=== PATIENT | female | born 1995 | race Caucasian/White ===

== ENCOUNTER → 2020-08-27 13:16 | Outpatient (BNVA) | payer SELFPAY | PROVIDERS: Visit Provider Family Medicine | DX: Z20.828 Contact with and (suspected) exposure to other viral communicable diseases (principal) | CPT/HCPCS: 87635 ==

== ENCOUNTER → 2020-09-28 10:00 | Outpatient (BNVA) | payer OTHER, SELFPAY | PROVIDERS: Visit Provider Obstetrics & Gynecology | DX: Z12.4 Encounter for screening for malignant neoplasm of cervix (principal) | CPT/HCPCS: 88175 ==

== ENCOUNTER → 2021-04-19 10:34 | Outpatient (BNVA) | payer OTHER, SELFPAY | PROVIDERS: PCP Nurse Practitioner Family; Visit Provider Nurse Practitioner Family | DX: F33.1 Major depressive disorder, recurrent, moderate (principal); Z83.2 Family history of diseases of the blood and blood-forming organs and certain disorders involving the immune mechanism | CPT/HCPCS: 80053; 81241; 82306; 82607; 83036; 83540; 84439; 84443; 85610 ==

== ENCOUNTER 2021-05-16 08:08 | Outpatient (CLI) | payer OTHER, SELFPAY ==
--- NOTE | 2021-05-17 07:52 | ONC CON_ITS ---
Dr. Spicer New Patient Note Patient: Alida Mtz Unit #: [id number]: 1995 Dicatated By: Gilberto Spicer M.D.Date of Visit: May 16, 2021 Onc MED New Patient/Consult Referring Physician: CLARE ALMEIDA N.P. Chief Complaint: Factor V Leiden mutation. History of Present Illness: This is a 25-year-old woman who was recently confirmed to have heterozygosity for the factor V Leiden mutation. She has been in good general health, and she has no personal history of thromboembolism. However, her father had an episode of major thromboembolism at age 40, and he was found to have the factor V Leiden mutation. Because of that, the patient recently had screening and she also was found to have heterozygosity for the factor V Leiden mutation. Her other laboratory studies at that time included a CBC which was unremarkable with hemoglobin 13.2 g, white blood cell count 9300, and platelet count 345,000. Her baseline pro time was normal at 12.40 seconds. Comprehensive metabolic profile was unremarkable. She did have a low vitamin D level at 18 ng/mL. Her serum iron and B12 levels were normal, and her TSH also was normal. She has had some minor symptoms associated with anxiety and depression, but those have been improving since she started treatment with Lexapro. She has otherwise been asymptomatic. Past Medical History: Ms. Mtz's medical history consists of anxiety and depression. She had COVID-19 virus infection in 2020. Past Surgical History: She has had no prior surgeries. Medications: Escitalopram Oxalate 1 Tablet (of 10 mg) Oral daily Allergies: Dapsone Social History: Ms. Mtz is . 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 She does not use any tobacco products, but she vapes daily. She has just occasional alcohol use. Family History: Both parents are living, father at age 47 and mother at age 50. He has known factor V Leiden mutation and he has had major thromboembolism. Mother has hypothyroidism. The patient has 2 sisters, both in good health. Neither have been tested for the factor V Leiden mutation. Her paternal grandfather had melanoma and he had multiple siblings with colon cancer. Review Of Symptoms: Constitutional - She had some fatigue when she first started Lexapro, but it is getting better. She has normal activity. Her appetite has been down a little, which she thinks is stress-related. She has no fever, night sweats, or hot flashes. ECOG score is 0, Eyes - No change in vision, ENMT - No hearing loss. She has tinnitus. No sinus congestion/drainage. No mouth sores. No sore throat or difficulty swallowing, Hematologic/Lymphatic - No abnormal bruising or bleeding. She has had no thromboembolism, Respiratory - No shortness of breath. No cough. No pleuritic pain or hemoptysis, Cardiovascular - No angina pain. No palpitations, Gastrointestinal - She has had some nausea, thought to be stress related. No heartburn or acid reflux. No diarrhea or constipation. No blood in the stool or black stools, Genitourinary (F) - No dysuria or hematuria. No urinary frequency. No urgency or incontinence. Her menstrual periods are regular, Musculoskeletal - She has sporadic sciatica pain on the right. She has no other joint or bone pain, Integumentary - No skin rash or other skin problems, Neurologic - No headache or dizziness. No numbness or tingling. No other focal neurologic symptoms, Psychiatric - She has anxiety and depression, but adequately managed with Lexapro. She has had some difficulty sleeping due to stress, but that is getting better. Vital Signs: Performed on May 16, 2021 08:35: 0, 0, 34.06 (HIGH), 1.95 sq.m, 64 in, 98 %, 98 /min, 18 /min, 129/89 mm(hg), 98.2 F (LOW), and 198.4 lbs (HIGH). Physical Examination: Constitutional - She appears to be in good general health, Eyes - Sclerae nonicteric. Conjunctivae clear, ENMT - No lesions noted in the oral cavity, Neck - No mass or thyromegaly, Hematologic/Lymphatic - No cervical, clavicular, or axillary adenopathy, Respiratory - Lungs are clear with good air movement bilaterally, Cardiovascular - Heart rhythm is regular. There is no murmur, gallop, or rub noted, Abdomen - Soft and non-tender. Liver and spleen are not enlarged. There is no abdominal mass or ascites noted and there is no inguinal adenopathy, Back/Spine - No spine or CVA tenderness noted, Extremities - No edema. Pedal pulses are palpable bilaterally, Integumentary - No rashes. No suspicious skin lesions noted, Neurologic - No focal neurologic deficits noted. Problem List: 1. Heterozygosity for the factor V Leiden mutation. 2. Anxiety/depression. 3. Vitamin D deficiency. Problems Addressed with this Encounter and Plan: Patient with heterozygosity for the factor V Leiden mutation. It was discovered as result of screening due to her father having had an episode of major thromboembolism at age 40 and having been found to have the factor V Leiden mutation. The patient has no personal history of thromboembolism. She is aware that in the context of her family history she will likely be at increased risk for thromboembolism associated with the factor V Leiden mutation. With her being asymptomatic and having no personal history of thromboembolism, there is no indication for anticoagulation at this time. However, she should have DVT prophylaxis with any surgical procedure, she is advised that she needs to stop vaping, and she is advised that she should avoid oral contraceptives, hormone replacement therapy, or any other form of hormonal treatment, which will be an added risk for thromboembolism. While she is in an indeterminate category with regard to obstetric management, she should be considered for intermediate dose anticoagulation with . Signed By: Gilberto Spicer M.D. <<Signature on File>>
== END 2021-05-16 08:09 | disposition home or self-care (01) ==
LOC: ONCMED 08:15
PROVIDERS: PCP Nurse Practitioner Family; Visit Provider Internal Medicine Medical Oncology
DX: D68.51 Activated protein C resistance (principal); F41.9 Anxiety disorder, unspecified; F32.9 Major depressive disorder, single episode, unspecified; E55.9 Vitamin D deficiency, unspecified; Z79.899 Other long term (current) drug therapy
CPT/HCPCS: 99204

== ENCOUNTER 2024-07-20 12:40 | Inpatient (IN) | payer OTHER, SELFPAY ==
[2024-07-20] VITALS (32 sets, daily range): BP systolic 93–112; BP diastolic 53–75; PULSE 61–90; RESP 15–18; TEMP 36.2–36.7; O2SAT 98–99; BMI 38.0
[2024-07-20] MEDS: lactated ringers 1,000 ML 999 ML IV (12:19)
[2024-07-20] MEDS: metoclopramide 5 mg/mL SDV 2 mL 10 MG IVP (12:24)
[2024-07-20] MEDS: citric acid-sodium citrate 30 mL UDC PO (12:25)
[2024-07-20] MEDS: famotidine 20 mg/2 mL INJ IVP (12:25)
[2024-07-20 12:41] LABS: Basophils % 0.2 %; Eosinophils # 0.1 10^3/uL (0.0-0.8); Eosinophils % 1.1 %; Hematocrit 37.6 % (36-47); Lymphocytes # 1.8 10^3/uL (0.8-4.8); Lymphocytes % 17.5 %; Mean Corpuscular HGB Conc 33.2 g/dL (30-55); Mean Corpuscular Hemoglobin 29.1 pg (27-33); Mean Corpuscular Volume 87.4 fl (85-98); Mean Platelet Volume 10.3 fL (7.4-10.4); Monocytes # 0.9 10^3/uL (0.2-0.9); Monocytes % 8.9 %; Neutrophils # 7.26 10^3/uL (1.8-7.7); Neutrophils % 71.8 %; Nucleated Red Blood Cells % 0 %; Platelet Count 229 10^3/cmm (157-399); Red Cell Distribution Width 13.5 % (12.1-15.1); White Blood Count 10.11 10^3/uL (3.29-11.43)
--- NOTE | 2024-07-20 12:45 | PM.OBGYHP ---
Providers/Chief Complaint Admitting Physician: Mark Thomas MD Chief Complaint: Poss. SROM, Ctx. 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 She is examined and found to be grossly ruptured. Apparently she thought her membranes were ruptured yesterday. She went to [facility] in [place], and according to them and she was not ruptured. She continued to leak throughout the night and eventually decided to come in again because she thought something was not right. Her baby has been moving a little bit less as well. Her contractions have been increasing in frequency and strength.. She has a previous section has been having a repeat section. She also has diet-controlled gestational diabetes that has been very well-controlled. She is heterozygous for factor V Leiden with a father had a DVT. Her baby appears to be borderline large for gestational age. Review of Systems General: Reports: 10 or more systems reviewed and unremarkable except in HPI and below Const: Reports: fatigue; Denies: fever(s) Eyes: Denies: change in vision Card: Denies: chest pain Musc: Reports: back pain [place]/Lymph: Denies: easy bruising Medications/Allergies Home Medications Medication Instructions Recorded Confirmed Last Taken Type docosahexaenoic acid 200 mg 1 mg PO DAILY 06/27/22 07/20/24 Unknown History capsule ( DHA) levothyroxine 25 mcg capsule 25 mcg PO DAILY 06/27/22 07/20/24 Unknown History docusate sodium 100 mg capsule 100 mg PO BID #14 caps 07/22/24 Unknown Rx enoxaparin 40 mg/0.4 mL 40 mg (0.4 mL) SUBCUT Q24H 13 days 07/22/24 Unknown Rx subcutaneous syringe #5.2 mL hydrocodone 5 mg-acetaminophen 325 1 tab PO Q6H PRN Moderate To 07/22/24 Unknown Rx mg tablet Severe Pain #28 tabs Allergies Allergy/AdvReac Type Severity Reaction Status Date / Time wheat Allergy ALGY-Rash Verified 07/21/24 20:50 dapsone AdvReac Mild coats red Verified 07/21/24 20:50 blood cells and cant get oxygen 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: Medical History Depression with anxiety No pertinent past medical history Surgical History Previous section No significant past surgical history Family History Family/Other Colon cancer Father side--Multiple family members Family history of thyroid problem Maternal Aunt x2 Mother Family history of thyroid problem Diabetes Grandmother Family history of thyroid problem Maternal Diabetes Maternal Stroke Paternal Grandfather Family history of thyroid problem Maternal Father Hypertension DVT (deep venous thrombosis) Social History Smoking and tobacco/nicotine status: current some day tobacco/nicotine user e-cigarettes E-Cigarette Details: vaporizer device E-cig/vape details: 1 time every 3 days. Started 03/2020. Alcohol intake: current Alcohol intake frequency: few times a month Substance/Drug Use: never Other Female Reproductive History: Hx Age of Menarche: 13 Duration of menses: 3-5 days Cycle Length: 26 days Menstrual flow: normal/abnormal: heavy History History History 0 Term Miscarriages/Ectopic Living Children Physical Exam Const: COMMON NORMALS: patient oriented x3 and alert HENMT: COMMON NORMALS: moist oral mucous membranes HEAD & SCALP: normal to inspection Chest: COMMONS NORMALS: normal inspection of the chest Resp: COMMON NORMALS: clear to auscultation bilaterally AUSCULTATION: clear to auscultation bilaterally Cardio: COMMON NORMALS: regular rate and regular rhythm RATE: regular rate RHYTHM: regular rhythm GI: INSPECTION: Yes normal to inspection and Yes other (Gravid) Extremity: COMMON NORMALS: normal to inspection GENERAL: Yes edema (Trace) Neuro: COMMON NORMALS: patient oriented x3, moves all extremities and no sensory deficits noted SENSORIUM/ORIENTATION: Yes alert Psych: COMMON NORMALS: mental status grossly normal Skin: COMMON NORMALS: no rashes or lesions noted GENERAL SKIN EXAM: no rashes or lesions noted Data 07/21/24 01:41 Results Labs OB ([facility]): Blood Type O Positive 07/20/24 Antibody Screen Negative 07/20/24 Hct 35.7 % (36-47) L 07/21/24 Hgb 11.70 g/dL (11.27-16.99) 07/21/24 Rho(D) Type Rh positive 07/20/24 Plt Count 208 10^3/cmm (157-399) 07/21/24 A&P Assessment and plan (1) 37 weeks gestation of : We will proceed with a repeat section. We have previously discussed the risks of bleeding, infection, and damage intra-abdominal organs. She and her have no further questions and wished to proceed. (2) Heterozygous factor V Leiden affecting in third trimester, antepartum: We discussed the pros and cons of anticoagulation post section. They understand that there is a balance between risks and blood clots. Because her father did have a blood clot her risk for a blood clot may be around 3% depending on the study. I discussed this with them and they have decided to proceed with prophylactic Lovenox for 2 weeks starting tomorrow. (3) Spontaneous rupture of membranes: (4) Previous section: (5) Hypothyroidism: Attestations Medical Necessity Statement*: I anticipate routine and post care other than the issues already mentioned in the history and physical.. Coding Level of Care Code Acute Code for Chg Fwd Diagnoses 37 weeks gestation of Z3A.37 Heterozygous factor V Leiden affecting in third trimester, antepartum O99.113; D68.51 Spontaneous rupture of membranes Previous section Z98.891 Hypothyroidism E03.9
--- NOTE | 2024-07-20 12:46 | ANES.PAUD2 ---
Pre-Anesthetic Update Pre-Anesthetic Assessment: Date of Surgery/Procedure: 07/20/24 Proposed Procedure: Changes from Pre-Anesthetic Assessment: No changes since she was seen for preanesthetic evaluation last week, factor V Leiden noted. Labs from today reviewed, platelet 229. Plan for with spinal Labs Last 48hrs: Short CBC 07/20/24 Range/Units 12:15 WBC 10.11 (3.29-11.43) 10^ 3/uL Hgb 12.50 (11.27-16.99) g/ dL Hct 37.6 (36-47) % MCV 87.4 (85-98) fl Plt Count 229 (157-399) 10^3/c mm Neut % (Auto) 71.8 % Neut # (Auto) 7.26 (1.8-7.7) 10^3/u L Cardiac Studies: No Data to Display
--- NOTE | 2024-07-20 13:52 | PM.OP ---
Operative Report Date of procedure: July 20, 2024 Pre-op diagnosis: 1. 29-year-old 2 para 1-0-0-1 at 37 weeks estimated gestational age 2. History of previous section desiring a repeat section 3. Heterozygous factor V Leiden 4. Gestational diabetes, diet-controlled 5. Hypothyroidism Post-op diagnosis: Status post repeat low-transverse section Procedure done: Repeat low-transverse section Specimens removed/disposition: 1. Male with a weight of 7 pounds 12 ouncesand Apgars of 8, 9 Surgeon: Mark Thomas MD Estimated blood loss (mL): 800 Complications: None Procedure: The patient was brought back to the operating room where she was prepped and draped in usual sterile fashion. Anesthesia was found to be adequate. A lower transverse skin incision was then made with a #10 blade. I then dissected down to the underlying subcutaneous tissue until arriving at the prerectal fascia. The fascia was then nicked with the scalpel bilaterally. The fascial incisions were then carried laterally with Moss scissors. Attention was then turned to the superior aspect of the incision which was grasped with kochers and tented up away from the underlying rectus abdominis muscles. The muscles were then dissected away from the fascia manually, and later with Moss scissors. Attention was then turned to the inferior aspect of the incision, and the fascia was dissected away from the underlying muscle in similar fashion. The rectus abdominis muscles were then spread manually. The peritoneum was entered manually. Excellent visualization of the uterus was noted. A lower transverse uterine incision was then made with a #10 blade. Upon arriving at the intrauterine cavity, the uterine incision was then extended manually. The was noted to be in vertex position. The baby was delivered without difficulty. After delivery of the head, the mouth and nose were suctioned at the site of the incision. There was no meconium. There was no nuchal cord. The baby was then completely delivered and placed on the abdomen. The cord was cut and clamped. The baby was then handed to Dr. Major and the waiting nurse. The placenta was removed intact. The uterus was externalized. The intrauterine cavity was cleansed of any remaining debris. The uterine incision was reapproximated in 2 layers. The first layer was performed with 0 Vicryl in a running locked stitch. The second layer was an imbricating stitch also using 0 Vicryl. The uterus was replaced into the abdomen. The peritoneum was then irrigated with warm saline. I reexamined the uterine incision and found it to be hemostatic. The rectus abdominis muscles were then reapproximated using 0 Vicryl in a running stitch. The fascia was then reapproximated using 0 Vicryl in running stitch. The skin was reapproximated using jakob. A sterile dressing was placed. All counts were correct x2. Both the mother and baby were in stable condition.
--- NOTE | 2024-07-20 14:20 | ANE.PACU2 ---
Inpatient post-anesthesia follow up: Airway intact: Yes Vital signs: Temperature 98.2 F Pulse Rate 76 Respiratory Rate 16 Blood Pressure 107/59 Pulse Oximetry 96 Oxygen Delivery Me thod Room Air Oxygen Flow Rate Fraction of Inspir ed Oxygen Hydration adequate: Yes Nausea and vomiting: No Pain level: 1 Mental status: Baseline
[2024-07-20] MEDS: HYDROcodone-acetaminophen 5-325 mg Tablet PO ×2 (17:09→21:08)
[2024-07-20] MEDS: ferrous sulfate EC 325 mg Tablet PO (17:09)
[2024-07-20] MEDS: docusate sodium 100 mg Capsule PO (17:09)
[2024-07-21 02:08] LABS: Hematocrit 35.7 % (36-47); Mean Corpuscular HGB Conc 32.8 g/dL (30-55); Mean Corpuscular Hemoglobin 28.8 pg (27-33); Mean Corpuscular Volume 87.9 fl (85-98); Mean Platelet Volume 10.2 fL (7.4-10.4); Platelet Count 208 10^3/cmm (157-399); Red Blood Count 4.06 10^6/uL (3.85-5.65); Red Cell Distribution Width 13.3 % (12.1-15.1); White Blood Count 14.69 10^3/uL (3.29-11.43)
[2024-07-21 03:30] VITALS: BP 105/69; PULSE 86; RESP 16; TEMP 36.8; O2SAT 96
[2024-07-21 06:00] VITALS: BMI 38.0
[2024-07-21 07:21] LABS: Glucose Point of Care 55 mg/dL (70-110)
[2024-07-21] MEDS: HYDROcodone-acetaminophen 5-325 mg Tablet PO ×4 (07:49→23:39)
[2024-07-21 09:00] VITALS: BP 107/59; PULSE 76
[2024-07-21] MEDS: PRENATAL VIT NO.130/IRON/FOLIC 1 EACH TABLET PO (09:01)
[2024-07-21] MEDS: docusate sodium 100 mg Capsule PO ×2 (09:01→17:51)
[2024-07-21] MEDS: enoxaparin 40 mg/0.4 mL Syringe SUBCUT (15:02)
[2024-07-21 16:08] VITALS: BP 98/53; PULSE 84
[2024-07-21] MEDS: HYDROcodone-acetaminophen 5-325 mg Tablet 1 TAB PO (19:32)
[2024-07-21 21:55] VITALS: BP 103/62; PULSE 89; RESP 18; TEMP 37.3
[2024-07-21] MEDS: simethicone 80 mg Chew PO (21:56)
[2024-07-22 04:47] VITALS: BP 108/61; PULSE 79; RESP 16; TEMP 36.6
[2024-07-22] MEDS: HYDROcodone-acetaminophen 5-325 mg Tablet PO (06:47)
[2024-07-22] MEDS: simethicone 80 mg Chew PO (06:47)
--- NOTE | 2024-07-22 07:50 | P.DS_ITS ---
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 SROM, Ctx. Hospital Course Hospital Course The patient presented to the hospital with spontaneous rupture of membranes. She had a history of a section and had a repeat section scheduled. As result a section was performed shortly after admission to the hospital. The was unremarkable. Her course was also unremarkable. Her pain was well-controlled with [place]. She was placed on Lovenox 40 mcg on the first postoperative day due to her history of factor V Leiden heterozygous status as well as a first-degree relative with a DVT. She tolerated and advance diet. She passed gas. Her bleeding was within normal limits. She is breast-feeding well. Information Peripartum Data: Infant Delivery Method: Physical Exam Narrative: She is in no acute distress Lungs are clear auscultation bilaterally Her heart has a regular rate and rhythm Her fundus is below the umbilicus and firm Her dressing is clean, dry and intact Her extremities have trace edema Urinary Catheter Management: Gonzalez: Cath Placed During This Visit: yes, but has since been removed by the nurse Reason for Continuing Indwelling Catheter: Decision to DC Catheter Urinary Catheter Date of Insertion: 07/20/24 Urinary Catheter Time of Insertion: 13:00 Date Urinary Catheter Removed: 07/21/24 Time Urinary Catheter Discontinued: 05:10 History History History 0 Term Miscarriages/Ectopic Living Children Discharge Data Studies Completed and Pending Laboratory Results WBC 14.69 10^3/uL (3.29-11.43) H 07/21/24 01:41 RBC 4.06 10^6/uL (3.85-5.65) 07/21/24 01:41 Hgb 11.70 g/dL (11.27-16.99) 07/21/24 01:41 Hct 35.7 % (36-47) L 07/21/24 01:41 MCV 87.9 fl (85-98) 07/21/24 01:41 MCH 28.8 pg (27-33) 07/21/24 01:41 MCHC 32.8 g/dL (30-55) 07/21/24 01:41 RDW 13.3 % (12.1-15.1) 07/21/24 01:41 Plt Count 208 10^3/cmm (157-399) 07/21/24 01:41 MPV 10.2 fL (7.4-10.4) 07/21/24 01:41 Neut % (Auto) 71.8 % 07/20/24 12:15 Lymph % (Auto) 17.5 % 07/20/24 12:15 [place] % (Auto) 8.9 % 07/20/24 12:15 Eos % (Auto) 1.1 % 07/20/24 12:15 Baso % (Auto) 0.2 % 07/20/24 12:15 Neut # (Auto) 7.26 10^3/uL (1.8-7.7) 07/20/24 12:15 Lymph # (Auto) 1.8 10^3/uL (0.8-4.8) 07/20/24 12:15 [place] # (Auto) 0.9 10^3/uL (0.2-0.9) 07/20/24 12:15 Eos # (Auto) 0.1 10^3/uL (0.0-0.8) 07/20/24 12:15 Baso # (Auto) 0.0 10^3/uL (0.0-0.1) 07/20/24 12:15 Nucleated RBC % (auto) 0 % 07/20/24 12:15 Nucleated RBCs # 0.0 /100WBC 07/20/24 12:15 POC Glucose 55 mg/dL (70-110) L 07/20/24 21:54 Blood Type O Positive 07/20/24 12:15 Rho(D) Type Rh positive 07/20/24 12:15 Antibody Screen Negative 07/20/24 12:15 Vitals Last Vital Signs Temp 97.9 F 07/22/24 04:47 Pulse 79 07/22/24 04:47 Resp 16 07/22/24 04:47 BP 108/61 07/22/24 04:47 Pulse Ox 96 07/21/24 03:30 O2 Del Method Room Air 07/22/24 04:47 Results Labs OB ([facility]): Blood Type O Positive 07/20/24 Antibody Screen Negative 07/20/24 Hct 35.7 % (36-47) L 07/21/24 Hgb 11.70 g/dL (11.27-16.99) 07/21/24 Rho(D) Type Rh positive 07/20/24 Plt Count 208 10^3/cmm (157-399) 07/21/24 Discharge Plan Discharge Patient Disposition: Home Condition: Stable Prescriptions: New hydrocodone-acetaminophen 5-325 mg Tablet 1 tab PO Q6H PRN (Reason: Moderate To Severe Pain) Qty: 28 0RF docusate sodium 100 mg Capsule 100 mg PO BID Qty: 14 0RF enoxaparin 40 mg/0.4 mL Syringe 40 mg SUBCUT Q24H 13 Days Qty: 5.2 0RF Continued levothyroxine 25 mcg capsule 25 mcg PO DAILY DHA 200 mg capsule 1 mg PO DAILY Discontinued aspirin 325 mg tablet 325 mg PO DAILY Discharge Orders: Discharge Order (Routine); Ordered 07/22/24 Ordered By: Mark Thomas Referrals: Mark Thomas MD [Physician] - (Keep current appt on 07/28) Discharge Diet: Usual diet Discharge Activity: Limit activity as instructed Patient Instructions: Depression (DC), Opioid Safety (DC), Preeclampsia and Eclampsia After Delivery (GEN), Hemorrhage (DC), OB - Anthony, OB Discharge Report, OB Food/Drug Interaction Guide, OB Care at Home, Opioid Safety, Abnormal Bleeding 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
[2024-07-22 09:00] VITALS: BP 109/74; PULSE 83
[2024-07-22 09:06] VITALS: BP 109/74; PULSE 83; RESP 16; TEMP 36.6; O2SAT 98
== END 2024-07-22 09:40 | disposition home or self-care (01) | DRG 787 ==
LOC: OPOB 12:40 → OBGYN 12:40
PROVIDERS: Admitting Provider Family Medicine; PCP Nurse Practitioner Family; Visit Provider Family Medicine
PROC: 10D00Z1 Extraction of Products of Conception, Low, Open Approach (ICD-10-PCS; CPT 59514; principal; 2024-07-20 12:45)
DX: O99.12 Other diseases of the blood and blood-forming organs and certain disorders involving the immune mechanism complicating childbirth (principal); D68.51 Activated protein C resistance; O34.211 Maternal care for low transverse scar from previous cesarean delivery; N85.8 Other specified noninflammatory disorders of uterus; Z3A.37 37 weeks gestation of pregnancy; Z37.0 Single live birth; O24.420 Gestational diabetes mellitus in childbirth, diet controlled; F17.290 Nicotine dependence, other tobacco product, uncomplicated; O99.284 Endocrine, nutritional and metabolic diseases complicating childbirth; E03.9 Hypothyroidism, unspecified
CPT/HCPCS: 36415; 36416; 51702; 59025; 59409; 82962; 83986; 85025; 85027; 86850; 86900; 96372; 96374; 98960; 99211; J1650; J2274; J2405; J2765; J3010; J3490; J7120